=== PATIENT | male | born 1985 | race Caucasian/White ===

== ENCOUNTER 2024-03-23 19:14 | Emergency (ER) | payer OTHER ==
[~2024-03-23] VITALS: Ht 185.4 cm; Wt 145.1 kg
[2024-03-23] MEDS ORDERED: morphine 4 MG/ML inj SYRINge IV PRN (19:35)
[2024-03-23] MEDS: ondansetron/PF 4mg/2ml inj IV PRN (19:51)
[2024-03-23] MEDS: morphine 4 MG/ML inj SYRINge IV ONE (19:51)
[2024-03-23] MEDS: TETanus/Pertussis (Acell)/Diphther VAC/PF (Tdap-Adult) 0.5ml syringe IMVAC ONE (19:54)
[2024-03-23 20:00] VITALS: BP 123/67
[2024-03-23 21:15] VITALS: PULSE 90; RESP 21; O2SAT 100
[2024-03-23] MEDS: fentaNYL/PF 50MCG/1 ML 2ML syringe IV ONE (21:32)
[2024-03-23] MEDS: LIDOcaine 1% W/epiNEPHrine 1:100,000 20ml vial SQ ONE (21:35)
[2024-03-23 23:08] VITALS: TEMP 98.7
== END 2024-03-23 23:12 | disposition home or self-care (01) ==
LOC: ER 19:15
DX: S01.01XA Laceration without foreign body of scalp, initial encounter (principal); G89.29 Other chronic pain; S80.811A Abrasion, right lower leg, initial encounter; S30.811A Abrasion of abdominal wall, initial encounter; S40.211A Abrasion of right shoulder, initial encounter; S40.212A Abrasion of left shoulder, initial encounter; M54.9 Dorsalgia, unspecified; V86.99XA Unspecified occupant of other special all-terrain or other off-road motor vehicle injured in nontraffic accident, initial encounter; Y93.89 Activity, other specified; Y92.89 Other specified places as the place of occurrence of the external cause; Y99.8 Other external cause status
CPT/HCPCS: 12001; 70450; 71045; 72070; 72100; 72125; 72170; 73564; 73590; 76705; 90471; 90715; 93308; 96374; 96375; 99285; J2270; J2405; J3010; J7030; A6449